=== PATIENT | female | born 2000 | race African-American/Black ===

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

== ENCOUNTER 2022-06-23 14:12 | Emergency (ER) | payer MEDICAID ==
[~2022-06-23] VITALS: Ht 167.6 cm; Wt 52.0 kg
[~2022-06-23 14:12] MED LIST changes: +CEPH500T MT
[2022-06-23 14:24] VITALS: BP 116/69
[2022-06-23] MEDS ORDERED: IBUP-2028 MT (17:36)
[2022-06-23] MEDS ORDERED: CEPH500C2 MT (17:36)
== END 2022-06-23 18:27 | disposition home or self-care (01) ==
LOC: ER 14:12
DX: L02.31 Cutaneous abscess of buttock (principal)
CPT/HCPCS: 99283

== ENCOUNTER 2022-06-25 15:12 | Emergency (ER) | payer MEDICAID ==
[~2022-06-25] VITALS: Ht 162.6 cm; Wt 55.0 kg
[2022-06-25 15:15] VITALS: BP 110/54
[2022-06-25] MEDS ORDERED: LIDOCAINE HCL 1% 20ML VIAL (Pyxis) INJ INFIL ONE (21:00)
== END 2022-06-25 22:01 | disposition home or self-care (01) ==
LOC: ER 15:12
DX: L02.31 Cutaneous abscess of buttock (principal)
CPT/HCPCS: 10060; 99282; J3490; Z7610